=== PATIENT | male | born 1955 | race Caucasian/White ===

== ENCOUNTER 2016-12-05 15:49 | Emergency (ER) | payer BC ==
[2016-12-05 15:57] VITALS: BP 123/79
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
== END 2016-12-05 18:39 | disposition home or self-care (01) ==
LOC: JP.ED 15:49
DX: S52.601A Unspecified fracture of lower end of right ulna, initial encounter for closed fracture (principal); S52.501A Unspecified fracture of the lower end of right radius, initial encounter for closed fracture; V86.59XA Driver of other special all-terrain or other off-road motor vehicle injured in nontraffic accident, initial encounter
CPT/HCPCS: 29125; 36415; 70450; 73110-RT; 80053; 85025; 93005; 99284-25

== ENCOUNTER 2021-07-03 10:47 | Day surgery (SDC) | payer BC, MEDICARE ==
[~2021-07-03 10:47] MED LIST: Midazolam 1 MG/ML 2 ML SDV ONE; Propofol 200 MG/20 ML SDV ONE; fentaNYL 100 MCG/2 ML SDV ONE
[2021-07-03] MEDS ORDERED: Sodium Chloride 0.9% 1,000 ML IV SCH (11:30)
[2021-07-03 13:42] VITALS: PULSE 65
[2021-07-03 13:57] VITALS: BP 135/89
== END 2021-07-03 13:55 | disposition home or self-care (01) ==
LOC: JP.SDS 10:47
PROVIDERS: ATTEND Surgery
DX: Z12.11 Encounter for screening for malignant neoplasm of colon (principal); D12.4 Benign neoplasm of descending colon
CPT/HCPCS: 45385; J2250; J2704; J3010; 88305